=== PATIENT | male | born 1955 | race Caucasian/White ===

== ENCOUNTER 2017-09-07 11:08 | Inpatient (IN) | payer OTHER ==
[2017-09-07 11:31] LABS: ADD MAN DIFF? NO
[2017-09-07 11:34] LABS: WHITE BLOOD COUNT 6.7 10^3/ul (4.8-10.8)
[2017-09-07 11:34] LABS: BASOPHILS % 0.4 % (0.0-2.0); EOSINOPHILS % 0.4 % (0.0-7.0); HEMOGLOBIN 15.7 g/dl (14.0-18.0); LYMPHOCYTES # 2.1 10^3/ul (0.8-2.9); MEAN CORPUSCULAR HEMOGLOBIN 31.6 pg (29.0-33.0); MEAN CORPUSCULAR HGB CONC 34.9 g/dl (32.0-37.0); MEAN CORPUSCULAR VOLUME 90.5 fl (82.0-101.0); MEAN PLATELET VOLUME 10.2 fl (7.4-10.4); MONOCYTE # 0.4 10^3/ul (0.3-0.9); MONOCYTES % 5.2 % (0.0-11.0); NEUTROPHIL # 4.2 10^3/ul (1.6-7.5); NEUTROPHILS % 62.9 % (39.0-77.0); PLATELET COUNT 182 10^3/UL (140-415); RED BLOOD COUNT 4.97 10^6/ul (4.70-6.10); RED CELL DISTRIBUTION WIDTH 12.5 % (11.5-14.5)
[2017-09-07 11:53] LABS: ANION GAP 15 (8-16); CHOL/HDL RATIO 5.1 RATIO; LDL CHOLESTEROL,CALCULATED 147 mg/dl
[2017-09-07 11:55] LABS: BLOOD UREA NITROGEN 16 mg/dl (7-20); CALCIUM 9.3 mg/dl (8.4-10.2); CARBON DIOXIDE 26 mmol/L (21-31); CHLORIDE 107 mmol/L (97-110); CHOLESTEROL 221 mg/dl (100-200); CREATININE 0.88 mg/dl (0.61-1.24); GLUCOSE 133 mg/dl (70-220); HDL CHOLESTEROL 43 mg/dl (30-78); POTASSIUM 3.5 mmol/L (3.5-5.1); SODIUM 144 mmol/L (135-144); TRIGLYCERIDES 156 mg/dl (0-149)
[2017-09-07] MEDS: ASPIRIN 325 MG TAB PO (12:00)
[2017-09-07 12:02] LABS: INR 0.92; PROTIME 12.4 Sec (11.9-14.9)
[2017-09-07 12:03] LABS: PARTIAL THROMBOPLASTIN TIME 26.5 Sec (25.0-35.0)
[2017-09-07 12:05] LABS: TROPONIN-I < 0.012 ng/ml (0.000-0.120)
[2017-09-07 12:19] LABS: HEMOGLOBIN A1C 5.6 % (0-5.9)
[2017-09-07] MEDS ORDERED: ONDANSETRON 4 MG INJ IV ×2 (13:00→14:30)
[2017-09-07] MEDS ORDERED: NACL 0.9% 3 ML SYG IV (14:30)
[2017-09-07] MEDS: ACETAMINOPHEN 325 MG TAB PO (17:27)
[2017-09-07] MEDS: ATORVASTATIN 80 MG TAB PO (20:59)
[2017-09-08] MEDS: HYDROCODONE/APAP (5/325) TAB PO ×3 (01:07→20:35)
[2017-09-08 08:01] LABS: ADD MAN DIFF? NO
[2017-09-08 08:12] LABS: WHITE BLOOD COUNT 4.9 10^3/ul (4.8-10.8)
[2017-09-08 08:12] LABS: BASOPHILS % 0.4 % (0.0-2.0); EOSINOPHILS % 0.8 % (0.0-7.0); HEMATOCRIT 42.5 % (42.0-52.0); HEMOGLOBIN 14.5 g/dl (14.0-18.0); LYMPHOCYTES # 1.8 10^3/ul (0.8-2.9); LYMPHOCYTES % 36.3 % (15.0-51.0); MEAN CORPUSCULAR HEMOGLOBIN 31.7 pg (29.0-33.0); MEAN CORPUSCULAR HGB CONC 34.1 g/dl (32.0-37.0); MEAN PLATELET VOLUME 10.8 fl (7.4-10.4); MONOCYTE # 0.3 10^3/ul (0.3-0.9); NEUTROPHIL # 2.7 10^3/ul (1.6-7.5); NEUTROPHILS % 56.3 % (39.0-77.0); PLATELET COUNT 163 10^3/UL (140-415); RED BLOOD COUNT 4.57 10^6/ul (4.70-6.10); RED CELL DISTRIBUTION WIDTH 12.3 % (11.5-14.5)
[2017-09-08 08:22] LABS: ALANINE AMINOTRANSFERASE 32 IU/L (13-69); ALBUMIN 3.4 g/dl (3.3-4.9); ALKALINE PHOSPHATASE 53 IU/L (42-121); ANION GAP 12 (8-16); ASPARTATE AMINO TRANSFERASE 18 IU/L (15-46); BILIRUBIN,INDIRECT 0.5 mg/dl (0-1.1); BILIRUBIN,TOTAL 0.5 mg/dl (0.2-1.3); BLOOD UREA NITROGEN 17 mg/dl (7-20); CALCIUM 8.8 mg/dl (8.4-10.2); CARBON DIOXIDE 29 mmol/L (21-31); CHLORIDE 106 mmol/L (97-110); CREATININE 0.83 mg/dl (0.61-1.24); GLUCOSE 139 mg/dl (70-220); POTASSIUM 3.7 mmol/L (3.5-5.1); SODIUM 143 mmol/L (135-144)
[2017-09-08 08:23] LABS: CREATINE KINASE 102 IU/L (23-200)
[2017-09-08 08:35] LABS: CK INDEX 1.3
[2017-09-08 08:48] LABS: CK-MB 1.33 ng/ml (0.0-2.4); TROPONIN-I < 0.012 ng/ml (0.000-0.120)
[2017-09-08] MEDS: ASPIRIN 81 MG TAB PO (09:04)
[2017-09-08 09:05] LABS: MAGNESIUM 1.8 mg/dl (1.7-2.5)
[2017-09-08 09:05] LABS: PHOSPHORUS 3.5 mg/dl (2.5-4.9)
[2017-09-08] MEDS: ENOXAPARIN 40 MG/0.4 ML SYG SC (09:05)
[2017-09-08] MEDS: SOD CHLORIDE 0.9% 100 ML (09:39)
[2017-09-08] MEDS: IOHEXOL 100 ML (09:39)
[2017-09-08] MEDS: ATORVASTATIN 80 MG TAB PO (20:36)
[2017-09-09] MEDS: ASPIRIN 325 MG TAB PO (08:48)
[2017-09-09] MEDS: ENOXAPARIN 40 MG/0.4 ML SYG SC (09:10)
== END 2017-09-09 14:13 | disposition home or self-care (01) | DRG 66 ==
LOC: E/R 11:08 → MS4 12:36
DX: I63.232 Cerebral infarction due to unspecified occlusion or stenosis of left carotid arteries (principal); I10 Essential (primary) hypertension; I25.10 Atherosclerotic heart disease of native coronary artery without angina pectoris; E78.5 Hyperlipidemia, unspecified; I25.2 Old myocardial infarction; Z95.5 Presence of coronary angioplasty implant and graft; Z79.82 Long term (current) use of aspirin
CPT/HCPCS: 36415; 70450; 70498; 70551; 71045; 80048; 80053; 80061; 82550; 82553; 82962; 83036; 83735; 84100; 84484; 85025; 85610; 85730; 92610; 93005; 93306; 93880; 97162; 97165; 99291-25